=== PATIENT | male | born 1995 | race Hispanic/Latino ===

== ENCOUNTER 2021-04-22 16:22 | Emergency (ER) | payer OTHER ==
[2021-04-22] MEDS ORDERED: AMOXICILLIN/POTASSIUM CLAV 875-125 TABLET PO ONE (17:01)
[2021-04-22] MEDS ORDERED: HYDROCODONE/ACETAMINOPHEN 10/325 MG TAB ONE (17:01)
== END 2021-04-22 17:32 | disposition home or self-care (01) ==
LOC: EDH 16:22
DX: H60.512 Acute actinic otitis externa, left ear (principal); Z90.49 Acquired absence of other specified parts of digestive tract; Z72.0 Tobacco use

== ENCOUNTER 2021-06-11 09:05 | Emergency (ER) | payer SELFPAY ==
[~2021-06-11] VITALS: Ht 170.2 cm; Wt 104.3 kg
[2021-06-11 09:08] VITALS: BP 136/88
[2021-06-11] MEDS ORDERED: CORTSOL AD (09:36)
== END 2021-06-11 09:46 | disposition home or self-care (01) ==
LOC: EDH 09:05
DX: H60.91 Unspecified otitis externa, right ear (principal); I10 Essential (primary) hypertension; E11.9 Type 2 diabetes mellitus without complications

== ENCOUNTER 2022-04-01 16:42 | Emergency (ER) | payer OTHER ==
[~2022-04-01] VITALS: Ht 172.7 cm; Wt 104.3 kg
[~2022-04-01 16:42] MED LIST: CORTSOL AD
[2022-04-01] MEDS ORDERED: HYDROCODONE/ACETAMINOPHEN 10/325 MG TAB PO ONE (17:30)
[2022-04-01] MEDS ORDERED: NAPR-1180 PO (18:10)
[2022-04-01 18:50] VITALS: BP 135/75
== END 2022-04-01 18:47 | disposition home or self-care (01) ==
LOC: EDH 16:42
DX: S70.12XA Contusion of left thigh, initial encounter (principal); S80.12XA Contusion of left lower leg, initial encounter; I10 Essential (primary) hypertension; W23.0XXA Caught, crushed, jammed, or pinched between moving objects, initial encounter; Y93.89 Activity, other specified; Y92.89 Other specified places as the place of occurrence of the external cause; Y99.8 Other external cause status
CPT/HCPCS: 73552; 73590

== ENCOUNTER 2022-05-08 17:57 | Emergency (ER) | payer OTHER ==
[~2022-05-08] VITALS: Ht 172.7 cm; Wt 104.3 kg
[~2022-05-08 17:57] MED LIST changes: +NAPR-1180 PO
[2022-05-08] MEDS ORDERED: AMOX/CLAV 875/125MG TAB PO ONE (18:30)
[2022-05-08] MEDS ORDERED: AZITHROMYCIN 250 MG TABLET PO ONE (18:30)
[2022-05-08] MEDS ORDERED: GUAIFENESIN-CODEINE 5 ML SYRUP PO ONE (18:30)
[2022-05-08] MEDS ORDERED: DEXAMETHASONE 4 MG TAB PO SCH (18:30)
[2022-05-08] MEDS ORDERED: IPRATROPIUM/ALBUTEROL SULFATE 3 ML SOLUTION IH ONE (18:30)
[2022-05-08] MEDS ORDERED: OSEL75 PO (19:13)
[2022-05-08] MEDS ORDERED: ALBU8.5H8 IH (19:13)
[2022-05-08] MEDS ORDERED: BENZ-39 PO (19:13)
[2022-05-08] MEDS ORDERED: AMOX1TAB16 PO (19:13)
[2022-05-08 19:18] VITALS: BP 134/88
== END 2022-05-08 19:32 | disposition home or self-care (01) ==
LOC: EDH 17:57
DX: J40 Bronchitis, not specified as acute or chronic (principal); F17.210 Nicotine dependence, cigarettes, uncomplicated; I10 Essential (primary) hypertension; Z20.822 Contact with and (suspected) exposure to COVID-19; Z79.899 Other long term (current) drug therapy
CPT/HCPCS: 71045; 87635; 87804 ×2; 94640; 99284; C9803; J8540

== ENCOUNTER 2022-08-21 11:16 | Emergency (ER) | payer OTHER ==
[~2022-08-21] VITALS: Ht 172.7 cm; Wt 99.8 kg
[~2022-08-21 11:16] MED LIST changes: +ALBU8.5H8 IH; +AMOX1TAB16 PO; +BENZ-39 PO; +OSEL75 PO
[2022-08-21] MEDS ORDERED: IPRATROPIUM/ALBUTEROL SULFATE 3 ML SOLUTION IH ONE (13:00)
[2022-08-21] MEDS ORDERED: AZITHROMYCIN 250 MG TABLET PO ONE (13:00)
[2022-08-21] MEDS ORDERED: SOLU-MEDROL 125MG VIAL IVP ONE (13:00)
[2022-08-21 14:24] LABS: BASOPHILS % (AUTO) 0.4 % (0.0-5.0); EOSINOPHILS % (AUTO) 0.9 % (0.0-8.0); HEMATOCRIT 41.9 % (42-54); LYMPHOCYTES % (AUTO) 15.4 % (21.0-51.0); MEAN CORPUSCULAR HEMOGLOBIN 28.6 pg (27.0-33.0); MEAN CORPUSCULAR HGB CONC 34.6 g/dL (32.0-36.0); MEAN CORPUSCULAR VOLUME 82.6 fL (79-99); MONOCYTES % (AUTO) 3.2 % (3.0-13.0); NEUTROPHILS % (AUTO) 79.8 % (40.0-77.0); PLATELET COUNT (AUTO) 308 K/uL (130-400); RED BLOOD CELL COUNT(AUTO) 5.07 MIL/uL (4.50-6.20); RED CELL DISTRIBUTION WIDTH 12.3 % (11.0-15.5); WHITE BLOOD COUNT (AUTO) 16.3 K/uL (4.8-10.8)
[2022-08-21] MEDS ORDERED: CEFTRIAXONE 1G VIAL IVP SCH (14:30)
[2022-08-21] MEDS ORDERED: 0.9%NACL 1000ML 2,000 ML IV ONE ×2 (14:30→14:41)
[2022-08-21] MEDS ORDERED: ONDANSETRON 4MG INJ IVP ONE (14:30)
[2022-08-21] MEDS ORDERED: ONDANSETRON 4MG INJ ONE (14:41)
[2022-08-21 14:43] LABS: APPEARANCE,URINE CLEAR (CLEAR); BILIRUBIN,URINE NEGATIVE (NEGATIVE); COLOR,URINE LIGHT-YELLOW (YELLOW); GLUCOSE, URINE (UA) NEGATIVE (NEGATIVE); KETONES,URINE 20 mg/dL (NEGATIVE); LEUKOCYTE ESTERASE ,URINE NEGATIVE Leu/uL (NEGATIVE); NITRATE,URINE NEGATIVE (NEGATIVE); OCCULT BLOOD,URINE NEGATIVE (NEGATIVE); PH,URINE 6.5 (5.0-8.0); PROTEIN,URINE NEGATIVE (NEGATIVE); UROBILINOGEN,URINE 0.2 mg/dL (0.2-1.0)
[2022-08-21] MEDS ORDERED: ALBU8.5H8 IH (14:56)
[2022-08-21] MEDS ORDERED: PRED20TA3 PO (14:56)
[2022-08-21] MEDS ORDERED: AZIT500T2 PO (14:56)
[2022-08-21 15:14] LABS: CREATININE 0.9 mg/dL (0.5-1.5); POTASSIUM 3.2 mmol/L (3.5-5.1)
[2022-08-21 15:23] LABS: ALBUMIN 3.8 g/dL (3.5-5.0); TOTAL PROTEIN, SERUM 8.2 g/dL (6.0-8.3)
[2022-08-21] MEDS ORDERED: ALBUTEROL 0.083% 2.5 MG/3 ML INH IH ONE ×2 (15:23→15:30)
[2022-08-21 15:43] VITALS: BP 134/70
== END 2022-08-21 15:52 | disposition home or self-care (01) ==
LOC: EDH 11:16
DX: J44.1 Chronic obstructive pulmonary disease with (acute) exacerbation (principal); Z20.822 Contact with and (suspected) exposure to COVID-19; I10 Essential (primary) hypertension; E66.9 Obesity, unspecified; F17.200 Nicotine dependence, unspecified, uncomplicated; Z79.1 Long term (current) use of non-steroidal anti-inflammatories (NSAID); Z79.52 Long term (current) use of systemic steroids; Z68.33 Body mass index [BMI] 33.0-33.9, adult
CPT/HCPCS: 99285; 96374; 71045; 96375; 87635; 96361; 84484; 80053; 85025; 85378; 87880; 87804 ×2; 83605; 81003; 36415; 94640 ×2; C9803; J7030; J2930; J0696; J2405

== ENCOUNTER 2024-04-27 05:08 | Emergency (ER) | payer OTHER ==
[~2024-04-27] VITALS: Ht 170.2 cm; Wt 108.9 kg
[~2024-04-27 05:08] MED LIST changes: +AZIT500T2 PO; +PRED20TA3 PO
[2024-04-27] MEDS: 0.9%NACL 1000ML 1,000 ML IV ONE (05:18)
[2024-04-27] MEDS: SOLU-MEDROL 125MG VIAL IVP ONE (05:20)
[2024-04-27] MEDS: DiphenhydrAMINE HCL 50 MG/ML VIAL IV ONE (05:20)
[2024-04-27] MEDS: FAMOTIDINE 20MG VIAL IV ONE (05:20)
[2024-04-27 05:21] VITALS: O2SAT 97
[2024-04-27] MEDS ORDERED: LORA10TA7 PO (05:41)
[2024-04-27] MEDS ORDERED: PRED10TA23 PO (05:41)
[2024-04-27] MEDS: DEXAMETHASONE SOD PHOSPHATE 4 MG/ML 1ML VIAL IM ONE (05:44)
[2024-04-27 06:29] VITALS: BP 129/83; PULSE 69; RESP 16
== END 2024-04-27 06:53 | disposition home or self-care (01) ==
LOC: EDH 05:08
DX: T78.40XA Allergy, unspecified, initial encounter (principal); I10 Essential (primary) hypertension; Z90.89 Acquired absence of other organs; Z79.899 Other long term (current) drug therapy; X58.XXXA Exposure to other specified factors, initial encounter
CPT/HCPCS: 99284; 96374; 96361; 96375; 96372; J1100; J1200; J3490; J7030; J2919

== ENCOUNTER 2025-08-23 17:22 | Emergency (ER) | payer OTHER ==
[~2025-08-23] VITALS: Ht 170.2 cm; Wt 112.5 kg
[~2025-08-23 17:22] MED LIST changes: +LORA10TA7 PO; +PRED10TA23 PO
[2025-08-23] MEDS: FAMOTIDINE 20MG VIAL IV ONE (17:53)
[2025-08-23] MEDS: 0.9%NACL 1000ML 1,000 ML IV ONE (17:53)
[2025-08-23 18:05] LABS: IMMATURE GRANULOCYTE ABSOLUTE 0.03 K/uL (0-1); NUCLEATED RED BLOOD CELLS 0.0 % (0.0-0.19); PLATELET COUNT (AUTO) 278 K/uL (130-400); RED BLOOD CELL COUNT(AUTO) 5.30 MIL/uL (4.50-6.20); RED CELL DISTRIBUTION WIDTH 12.6 % (11.0-15.5); WHITE BLOOD COUNT (AUTO) 11.3 K/uL (4.8-10.8)
[2025-08-23 18:14] LABS: CREATININE 1.0 mg/dL (0.5-1.3); GLOMERULAR FILTR. RATE CALC 104.0 mL/min (>90); GLUCOSE,RANDOM 140.0 mg/dL (70-105); SODIUM SERUM 140.0 mmol/L (136-145); UREA NITROGEN, BLOOD 12.0 mg/dL (7-18)
[2025-08-23 18:43] VITALS: BP 134/89; PULSE 69; RESP 15; TEMP 98.9; O2SAT 98
--- NOTE | 2025-08-23 18:47 | ERN ---
ED Note History of Present Illness Stated Complaint: HEAD IS SWOLLEN/ ALLERGIC REACTION Chief Complaint: Allergic Reaction Time Seen by MD: 17:27 Time Seen by Midlevel: 17:27 Dictation: The patient is a 29-year-old male with a history of appendectomy who presents to the emergency department with complaints of erythema and swelling to scalp onset . Patient reports that today he woke up more swollen than usual. Reports he dye his hair and thinks his an allergic reaction to the hair dye. Patient denies any fevers. Allergies: Coded Allergies: No Known Drug Allergies (Unverified Allergy, Unknown, 04/22/21) Home Meds Active Scripts Loratadine (Loratadine) 10 Mg Tablet, 10 MG PO DAILY for 30 Days, #30 TAB Prov:SHAUNA CAT MD 04/27/24 Prednisone (Prednisone) 10 Mg Tab.ds.pk, 10 MG PO BID for 7 Days, #14 TAB Prov:SHAUNA CAT MD 04/27/24 Albuterol Sulfate (Proair Hfa) 8.5 Gm Hfa.aer.ad, 8.5 GM IH Q4HPRN PRN for wheezing, #1 UNIT Prov:JUAN FERNANDEZ MD 08/21/22 Azithromycin (Zithromax Tri-Jeff) 500 Mg Tablet, 500 MG PO DAILY, #3 TAB Prov:JUAN FERNANDEZ MD 08/21/22 Prednisone (Prednisone) 20 Mg Tablet, 1 TAB PO AD for 6 Days, #14 TAB 0 Refills TAKE 1 TAB BY MOUTH THREE TIMES PER DAY X3 DAYS, THEN TAKE 1 TAB BY MOUTH TWICE A DAY X2 DAYS, THEN TAKE 1 TAB BY MOUTH ONCE A DAY X1 DAY. Prov:JUAN FERNANDEZ MD 08/21/22 Benzonatate (Tessalon Perles) 100 Mg Cap, 100 MG PO QIDP, #30 CAP Prov:PRESTON TO 05/08/22 Albuterol Sulfate (Proair Hfa) 8.5 Gm Hfa.aer.ad, 2 PUFF IH QIDP, #1 INHALER Prov:PRESTON TO 05/08/22 Oseltamivir Phosphate (Tamiflu) 75 Mg Cap, 75 MG PO BID for 5 Days, #10 CAP Prov:PRESTON TO 05/08/22 Amoxicillin/Potassium Clav (Amox Tr-K Clv 875-125 mg Tab) 1 Each Tablet, 1 EACH PO BID, #20 TAB Prov:PRESTON TO 05/08/22 Naproxen (Naprosyn) 500 Mg Tablet, 500 MG PO BIDPC, #60 TAB Prov:PRESTON TO 04/01/22 Neomy Sulf/Polymyx B Sulf/Hc (Cortisporin Otic Soln) 20 Drop/Ml Otsol, 20 DROP AD QID for 5 Days, #20 DROP Prov:MADELINE RENDON MD 06/11/21 Past Medical History Past Medical History: No Pertinent History Additional Past Medical Hx: NON COMPLIANT, obesity Surgical History: Appendectomy Family History: DM, HTN Social History: ETOH, Lives with family RN Note Reviewed/Agreed w/PFSH: Yes Review of System Dictation Constitutional: Negative for fever,chills, and weight loss Eyes: Negative for injury, pain,redness, and discharge ENT: Negative for injury,pain or swelling Cardiovascular: Negative for chest pain, palpitations, and edema Respiratory: Negative for shortness of breath, cough, and wheezing, Abdomen/GI: Negative for abdominal pain, nausea, vomiting, diarrhea, and constipation Back: Negative for injury and pain : Negative for injury, bleeding and discharge MS/Extremity: Negative for injury and deformity Skin: Negative for rash, and discoloration positive for erythema to scalp Neuro: Negative for headache, weakness, numbness, tingling, and seizure Psych: Negative for suicide ideation, homicidal ideation, and hallucinations Initial Vital Sign VS Vital Signs Date Time Temp Pulse Resp B/P (MAP) Pulse Ox O2 Delivery O2 Flow Rate FiO2 08/23/25 17:27 99.0 83 14 140/89 98 Room Air 0 08/23/25 17:43 21 Physical Exam Dictation Vital Signs reviewed General Appearance: Alert, oriented x 3, no acute distress, well developed, nourished. Head and Face: non-traumatic. Eyes: PERRL, pink conjunctivas, eyelid no trauma, anterior chamber with arcus senilis. Ears: Pinnas intact and no signs of trauma or erythema ear canals clear and no discharge TM no erythema Nose: No discharge, no bleeding. Oropharynx: Mouth normal, tongue pink. pharynx clear,no erythema, tonsils no exudates, no abscesses noted, mucous membrane moist Neck: Supple, non-tender, no thyromegaly, no masses, no JVD, no bruits Breast:Deferred Chest:No tenderness, no crepitus, no paradoxical movement, no retractions Lungs:Clear, well-ventilated, symmetric, no rales, no wheezing, no rhonchi, no stridor, good breath sounds bilaterally Heart: Regular rate, regular rhythm, no murmur, no gallops Vascular: no peripheral edema, Abdomen: Soft, positive bowel sounds, nondistended, no guarding, nontender, no rebound, no masses no hepatomegaly, no splenomegaly, no Rodrigues's sign, no hernias. Rectal: Deferred Genital: Deferred Neurological: Normal speech, motor function intact, sensory function intact Musculoskeletal: Neck nontender, full range of motion, back nontender, full range of motion, Extremities: nontender, full range of motion Skin: Color pink, dry, no turgor, no rash, no lacerations, no abrasions, no contusions.erythema to frontal scalp, honey crusting noted ,no drainage, swelling to scalp Lymphatic: Deferred Results (Laboratory/Radiology) Laboratory/Radiology Laboratory Tests Test 08/23/25 18:00 White Blood Count 11.3 K/uL (4.8-10.8) H Red Blood Count 5.30 MIL/uL (4.50-6.20) Hemoglobin 15.7 g/dL (14.0-18.0) Hematocrit 44.4 % (42-54) Mean Corpuscular Volume 83.8 fL (79-99) Mean Corpuscular Hemoglobin 29.6 pg (27.0-33.0) Mean Corpuscular Hemoglobin Concent 35.4 g/dL (32.0-36.0) Red Cell Distribution Width 12.6 % (11.0-15.5) Platelet Count 278 K/uL (130-400) Mean Platelet Volume 10.7 fL (7.5-10.5) H Immature Granulocyte % (Auto) 0.3 % (0-1) Neutrophils (%) (Auto) 62.8 % (40.0-77.0) Lymphocytes (%) (Auto) 25.6 % (21.0-51.0) Monocytes (%) (Auto) 4.9 % (3.0-13.0) Eosinophils (%) (Auto) 6.0 % (0.0-8.0) Basophils (%) (Auto) 0.4 % (0.0-5.0) Neutrophils # (Auto) 7.1 K/uL (1.8-7.7) Lymphocytes # (Auto) 2.9 K/uL (1.0-4.8) Monocytes # (Auto) 0.6 K/uL (0.1-1.0) Eosinophils # (Auto) 0.68 K/uL (0.00-0.70) Basophils # (Auto) 0.04 K/uL (0.00-0.20) Absolute Immature Granulocyte (auto 0.03 K/uL (0-1) Nucleated Red Blood Cells 0.0 % (0.0-0.19) Sodium Level 140 mmol/L (136-145) Potassium Level 3.6 mmol/L (3.5-5.1) Chloride Level 103 mmol/L (101-111) Carbon Dioxide Level 27 mmol/L (21-32) Blood Urea Nitrogen 12 mg/dL (7-18) Creatinine 1.0 mg/dL (0.5-1.3) Glomerular Filtration Rate Calc 104 mL/min (>90) Random Glucose 140 mg/dL (70-105) H Total Calcium 8.6 mg/dL (8.5-10.1) Labs Reviewed?: Yes ED Course ED Course Orders Procedure Category Date Status Time Cbc With Differential LAB 08/23/25 Complete 17:34 Basic Metabolic Panel LAB 08/23/25 Complete 17:34 Methylprednisolone PHA 08/23/25 Complete Succ 125mg (Solu-Medr 18:00 Diphenhydramine Hcl PHA 08/23/25 Complete (Benadryl Inj) 18:00 Famotidine 20mg Vial PHA 08/23/25 Complete (Pepcid 20mg Vial) 18:00 0.9%Nacl 1000ml (Ns PHA 08/23/25 Complete 1000ml) 18:00 Current Medications Medications (Trade) Dose Ordered Sig/Lauren Route PRN Reason Start Time Stop Time Status Last Admin Dose Admin Diphenhydramine HCl (BENAdryl INJ) 25 mg ONCE ONCE IV 08/23/25 18:00 08/23/25 18:01 DC 08/23/25 17:53 Famotidine (Pepcid 20mg Vial) 20 mg ONCE ONCE IV 08/23/25 18:00 08/23/25 18:01 DC 08/23/25 17:53 Methylprednisolone Sodium Succinate (Solu-medROL 125MG) 125 mg ONCE ONCE IVP 08/23/25 18:00 08/23/25 18:01 DC 08/23/25 17:53 Sodium Chloride 1,000 ml @ 0 mls/hr ONCE ONCE IV 08/23/25 18:00 08/23/25 18:01 DC 08/23/25 17:53 Vital Signs Date Time Temp Pulse Resp B/P (MAP) Pulse Ox O2 Delivery O2 Flow Rate FiO2 08/23/25 18:43 99.0 69 15 134/89 98 Room Air* 0 21 08/23/25 17:43 99.0 83 14 140/89 98 Room Air* 0 21 08/23/25 17:27 99.0 83 14 140/89 98 Room Air 0 Medical Decision Making MDM The patient is a 29-year-old male with a history of appendectomy who presents to the emergency department with complaints of erythema and swelling to scalp onset . Patient reports that today he woke up more swollen the usual. Reports he dye his hair and thinks his an allergic reaction to the hair dye. Patient denies any fevers. CBC showed mild leukocytosis, no anemia, chemistry showed mild hyperglycemia, normal renal function Patient has symptoms consistent with impetigo. On physical exam patient is in no acute distress, airway intact, nontoxic appearance. We will treat patient with the antibiotics. Differential diagnosis: Allergic reaction, impetigo, cellulitis, Need for hospitalization: Patient does not meet criteria for hospitalization. There are no social concerns with this patient. DX & DISP Disposition: Discharge Departure Impression: Primary Impression: Impetigo Condition: Stable Scripts Mupirocin Calcium (Mupirocin) 2 % Cream..g. 1 APPL TP TID for 7 Days, #15 GM 0 Refills Prov: BILL CAPPS DIRECTOR CARDIOLOGY 08/23/25 Sulfamethoxazole/Trimethoprim (Bactrim Ds Tablet) 800 Mg-160 Mg Tablet 1 TAB PO BID for 7 Days, #14 TAB 0 Refills Prov: BILL CAPPS DIRECTOR CARDIOLOGY 08/23/25 Additional Instructions: Your labs were unremarkable. Prescribed some antibiotics for skin infection. Please take your antibiotics as prescribed. If anything worsens please return to ER. FOLLOW-UP WITH PRIMARY CARE PROVIDER IN 1 TO 2 DAYS. TAKE MEDICATIONS DIRECTED HERE IN THE EMERGENCY ROOM. OKAY TO CONTINUE HOME MEDICATIONS UNLESS OTHERWISE DISCUSSED DURING YOUR VISIT IN THE EMERGENCY ROOM TODAY. RETURN TO YOUR NEAREST EMERGENCY ROOM IF SYMPTOMS WORSEN OR IF THERE IS NO IMPROVEMENT. CALL 911 IF YOU NEED IMMEDIATE ASSISTANCE. TAKE TYLENOL [id number] NEEDED AND IF NO CONTRAINDICATIONS ARE PRESENT. INCREASE ORAL HYDRATION. A WOUND CULTURE OR URINE CULTURE WAS ORDERED HERE IN THE EMERGENCY ROOM DEPARTMENT PLEASE FOLLOW-UP WITH PRIMARY CARE PROVIDER AND ADVISE THEM TO GET REPEAT PORTS FROM OUR FACILITY. IF YOU HAD ANY CARMELITA WRAP/SPLINTS THAT WERE APPLIED HERE, PLEASE DO NOT REMOVE THEM UNTIL YOU SEE YOUR PRIMARY CARE OR SPECIALTY. Referrals: SELF,REFERRAL (PCP) Time of Disposition: 18:53 I have examined patient, & reviewed all documents, & agreed W/ the Diagnosis, and Plan BILL CAPPSP Aug 23, 2025 18:47
[2025-08-23] MEDS ORDERED: MUPI15CR12 TP (18:56)
[2025-08-23] MEDS ORDERED: SULF1TAB42 PO (18:56)
== END 2025-08-23 19:24 | disposition home or self-care (01) ==
LOC: EDH 17:22
DX: L01.00 Impetigo, unspecified (principal); E66.9 Obesity, unspecified; Z79.52 Long term (current) use of systemic steroids; Z90.49 Acquired absence of other specified parts of digestive tract; Z68.38 Body mass index [BMI] 38.0-38.9, adult
CPT/HCPCS: 99284; 96374; 96375; 96361; 80048; 85025; 36415; J2919; J1200; J1308

== ENCOUNTER 2025-09-22 21:09 | Emergency (ER) | payer OTHER ==
[~2025-09-22] VITALS: Ht 170.2 cm; Wt 106.6 kg
[~2025-09-22 21:09] MED LIST changes: +MUPI15CR12 TP; +SULF1TAB42 PO
[2025-09-22 21:20] VITALS: BP 145/93; PULSE 63; RESP 20; TEMP 98.8; O2SAT 99
[2025-09-22 21:29] LABS: RAPID GROUP A STREP negative (NEGATIVE)
[2025-09-22 21:40] LABS: INFLUENZA TYPE A Negative For Type A (NEGATIVE); INFLUENZA TYPE B Negative For Type B (NEGATIVE)
[2025-09-22 22:00] LABS: SARS-CoV-2, RNA, NAAT NEGATIVE SARS CoV-2 (NEGATIVE)
--- NOTE | 2025-09-22 22:18 | HMCIMG ---
EXAM: CR Chest, 1 View. CLINICAL HISTORY: cough COMPARISON: None provided. FINDINGS: LUNGS: There is no mass, infiltrate, or acute pulmonary abnormality. PLEURAL SPACES: No evidence of pleural effusion or pneumothorax. MEDIASTINUM: Cardiac size and mediastinal contours within normal limits. BONES: No acute osseous abnormality. IMPRESSION: No acute cardiopulmonary pathology is evident. /[place]
--- NOTE | 2025-09-22 22:21 | ERN ---
ED Note History of Present Illness Stated Complaint: C/O COUGH,CONGESTION,SORE THROAT,SOB X 1 WK Chief Complaint: Cough Time Seen by MD: 21:11 Time Seen by Midlevel: 21:11 Dictation: The patient is a 30-year-old male with a history of appendectomy who presents to the emergency department with complaints of cough, sore throat, chills onset a week ago. Reports right side occasional chest discomfort with coughing. Reports patient's girlfriend who is also here in the ER has the same symptoms. Allergies: Coded Allergies: No Known Drug Allergies (Unverified Allergy, Unknown, 04/22/21) Home Meds Active Scripts Mupirocin Calcium (Mupirocin) 2 % Cream..g., 1 APPL TP TID for 7 Days, #15 GM 0 Refills Prov:BILL CAPPS 08/23/25 Sulfamethoxazole/Trimethoprim (Bactrim Ds Tablet) 800 Mg-160 Mg Tablet, 1 TAB PO BID for 7 Days, #14 TAB 0 Refills Prov:BILL CAPPS 08/23/25 Loratadine (Loratadine) 10 Mg Tablet, 10 MG PO DAILY for 30 Days, #30 TAB Prov:SHAUNA CAT MD 04/27/24 Prednisone (Prednisone) 10 Mg Tab.ds.pk, 10 MG PO BID for 7 Days, #14 TAB Prov:SHAUNA CAT MD 04/27/24 Albuterol Sulfate (Proair Hfa) 8.5 Gm Hfa.aer.ad, 8.5 GM IH Q4HPRN PRN for wheezing, #1 UNIT Prov:JUAN FERNANDEZ MD 08/21/22 Azithromycin (Zithromax Tri-Jeff) 500 Mg Tablet, 500 MG PO DAILY, #3 TAB Prov:JUAN FERNANDEZ MD 08/21/22 Prednisone (Prednisone) 20 Mg Tablet, 1 TAB PO AD for 6 Days, #14 TAB 0 Refills TAKE 1 TAB BY MOUTH THREE TIMES PER DAY X3 DAYS, THEN TAKE 1 TAB BY MOUTH TWICE A DAY X2 DAYS, THEN TAKE 1 TAB BY MOUTH ONCE A DAY X1 DAY. Prov:JUAN FERNANDEZ MD 08/21/22 Benzonatate (Tessalon Perles) 100 Mg Cap, 100 MG PO QIDP, #30 CAP Prov:PRESTON TO 05/08/22 Albuterol Sulfate (Proair Hfa) 8.5 Gm Hfa.aer.ad, 2 PUFF IH QIDP, #1 INHALER Prov:JOEY TOTACO MEDEIROS 05/08/22 Oseltamivir Phosphate (Tamiflu) 75 Mg Cap, 75 MG PO BID for 5 Days, #10 CAP Prov:TOJOEY AnnPRESTON PA 05/08/22 Amoxicillin/Potassium Clav (Amox Tr-K Clv 875-125 mg Tab) 1 Each Tablet, 1 EACH PO BID, #20 TAB Prov:JOEY TOTACO MEDEIROS 05/08/22 Naproxen (Naprosyn) 500 Mg Tablet, 500 MG PO BIDPC, #60 TAB Prov:TOJOEY AnnPRESTON PA 04/01/22 Neomy Sulf/Polymyx B Sulf/Hc (Cortisporin Otic Soln) 20 Drop/Ml Otsol, 20 DROP AD QID for 5 Days, #20 DROP Prov:MADELINE RENDON MD 06/11/21 Past Medical History Past Medical History: Unknown Additional Past Medical Hx: NON COMPLIANT, obesity Surgical History: None Family History: DM, HTN Social History: ETOH, Lives with family Review of System Dictation Constitutional: Negative for fever,chills, and weight loss Eyes: Negative for injury, pain,redness, and discharge ENT: Negative for injury,pain or swelling positive for sore throat Cardiovascular: Negative for chest pain, palpitations, and edema Respiratory: Negative for shortness of breath, and wheezing, cough Abdomen/GI: Negative for abdominal pain, nausea, vomiting, diarrhea, and constipation Back: Negative for injury and pain : Negative for injury, bleeding and discharge MS/Extremity: Negative for injury and deformity Skin: Negative for rash, and discoloration Neuro: Negative for headache, weakness, numbness, tingling, and seizure Psych: Negative for suicide ideation, homicidal ideation, and hallucinations Initial Vital Sign VS Vital Signs Date Time Temp Pulse Resp B/P (MAP) Pulse Ox O2 Delivery O2 Flow Rate FiO2 09/22/25 21:11 98.8 63 20 145/93 99 Room Air 09/22/25 21:20 0 21 Physical Exam Dictation Vital Signs reviewed General Appearance: Alert, oriented x 3, no acute distress, well developed, nourished. Head and Face: non-traumatic. Eyes: PERRL, pink conjunctivas, eyelid no trauma, anterior chamber with arcus senilis. Ears: Pinnas intact and no signs of trauma or erythema ear canals clear and no discharge TM no erythema Nose: No discharge, no bleeding. Oropharynx: Mouth normal, tongue pink. pharynx clear,no erythema, tonsils no exudates, no abscesses noted, mucous membrane moist Neck: Supple, non-tender, no thyromegaly, no masses, no JVD, no bruits Breast:Deferred Chest:No tenderness, no crepitus, no paradoxical movement, no retractions Lungs:Clear, well-ventilated, symmetric, no rales, no wheezing, no rhonchi, no stridor, good breath sounds bilaterally Heart: Regular rate, regular rhythm, no murmur, no gallops Vascular: no peripheral edema, Abdomen: Soft, positive bowel sounds, nondistended, no guarding, nontender, no rebound, no masses no hepatomegaly, no splenomegaly, no Rodrigues's sign, no hernias. Rectal: Deferred Genital: Deferred Neurological: Normal speech, motor function intact, sensory function intact Musculoskeletal: Neck nontender, full range of motion, back nontender, full range of motion, Extremities: nontender, full range of motion Skin: Color pink, dry, no turgor, no rash, no lacerations, no abrasions, no contusions. Lymphatic: Deferred Results (Laboratory/Radiology) Laboratory/Radiology Laboratory Tests Test 09/22/25 21:16 Influenza Type A Antigen Negative For Type A Influenza Type B Antigen Negative For Type B SARS-CoV-2, RNA, NAAT NEGATIVE SARS CoV-2 Group A Streptococcus Rapid negative (NEGATIVE) REASON: cough ORDERING PHYSICIAN: BILL CAPPS SHOULDER PUNCHER PROCEDURE: CXR1VW - CHEST 1VW ADDENDUM REPORT ADDENDUM: EXAM: CR Chest, 1 View. CLINICAL HISTORY: cough COMPARISON: None provided. FINDINGS: LUNGS: There is no mass, infiltrate, or acute pulmonary abnormality. PLEURAL SPACES: No pleural effusion or pneumothorax. MEDIASTINUM: Cardiac size and mediastinal contours within normal limits. BONES: No acute osseous abnormality. IMPRESSION: No acute cardiopulmonary pathology is evident. /[place] EXAM: CR Chest, 1 View. CLINICAL HISTORY: cough COMPARISON: None provided. FINDINGS: LUNGS: There is no mass, infiltrate, or acute pulmonary abnormality. PLEURAL SPACES: No evidence of pleural effusion or pneumothorax. MEDIASTINUM: Cardiac size and mediastinal contours within normal limits. BONES: No acute osseous abnormality. IMPRESSION: No acute cardiopulmonary pathology is evident. /[place] Labs Reviewed?: Yes ED Course ED Course Orders Procedure Category Date Status Time Covid Rna Naat LAB 09/22/25 Complete 21:16 Influenza Type A & B, LAB 09/22/25 Complete Rapid 21:16 Rapid (Group A Strep) LAB 09/22/25 Complete 21:16 Chest 1vw RAD 09/22/25 Resulted 21:18 Ketorolac 60mg/2ml PHA 09/22/25 Complete (Toradol 60mg/2ml) 22:00 Current Medications Medications (Trade) Dose Ordered Sig/Lauren Route PRN Reason Start Time Stop Time Status Last Admin Dose Admin Ketorolac Tromethamine (toRADol 60MG/ 2ML) 60 mg ONCE ONCE IM 09/22/25 22:00 09/22/25 22:01 DC 09/22/25 21:49 Vital Signs Date Time Temp Pulse Resp B/P (MAP) Pulse Ox O2 Delivery O2 Flow Rate FiO2 09/22/25 21:20 98.8 63 20 145/93 99 Room Air* 0 21 09/22/25 21:11 98.8 63 20 145/93 99 Room Air Medical Decision Making MDM The patient is a 30-year-old male with a history of appendectomy who presents to the emergency department with complaints of cough, sore throat, chills onset a week ago. Reports right side occasional chest discomfort with coughing. Reports patient's girlfriend who is also here in the ER has the same symptoms. Serology was negative, x-ray showed no infiltrates. On physical exam patient is in no acute distress, nontoxic appearance, no risk factors. Patient will be discharged to follow up with PCP. Differential diagnosis:, URI, pneumonia, strep throat Need for hospitalization: Patient does not meet criteria for hospitalization. There are no social concerns with this patient. DX & DISP Disposition: Discharge Departure Impression: Primary Impression: Viral URI with cough Condition: Stable Additional Instructions: Your x-ray did not show any pneumonia. Your symptoms are likely due to a viral infection. Please continue fluid hydration at home. FOLLOW-UP WITH PRIMARY CARE PROVIDER IN 1 TO 2 DAYS. TAKE MEDICATIONS DIRECTED HERE IN THE EMERGENCY ROOM. OKAY TO CONTINUE HOME MEDICATIONS UNLESS OTHERWISE DISCUSSED DURING YOUR VISIT IN THE EMERGENCY ROOM TODAY. RETURN TO YOUR NEAREST EMERGENCY ROOM IF SYMPTOMS WORSEN OR IF THERE IS NO IMPROVEMENT. CALL 911 IF YOU NEED IMMEDIATE ASSISTANCE. TAKE TYLENOL [id number] NEEDED AND IF NO CONTRAINDICATIONS ARE PRESENT. INCREASE ORAL HYDRATION. A WOUND CULTURE OR URINE CULTURE WAS ORDERED HERE IN THE EMERGENCY ROOM DEPARTMENT PLEASE FOLLOW-UP WITH PRIMARY CARE PROVIDER AND ADVISE THEM TO GET REPEAT PORTS FROM OUR FACILITY. IF YOU HAD ANY CARMELITA WRAP/SPLINTS THAT WERE APPLIED HERE, PLEASE DO NOT REMOVE THEM UNTIL YOU SEE YOUR PRIMARY CARE OR SPECIALTY. Referrals: SELF,REFERRAL (PCP) Time of Disposition: 22:30 I have reviewed the case, and I agree with, Diagnosis and Plan I performed a substantive portion of the visit. I have reviewed and personally made and approve the management plan that is documented in the notes by myself with OMAR/resident. I acknowledged full responsibility for the patient's management plan. BILL CAPPS Sep 22, 2025 22:21 LIANA TRAN DO Sep 23, 2025 01:41
== END 2025-09-22 22:45 | disposition home or self-care (01) ==
LOC: EDH 21:09
DX: J06.9 Acute upper respiratory infection, unspecified (principal); B97.89 Other viral agents as the cause of diseases classified elsewhere; E66.9 Obesity, unspecified; Z20.822 Contact with and (suspected) exposure to COVID-19; Z79.52 Long term (current) use of systemic steroids
CPT/HCPCS: 99284; 71045; 87635; 87880; 87804 ×2; 96372; J1885